=== PATIENT | female | born 1940 | race Caucasian/White ===

== ENCOUNTER → 2017-01-21 | Outpatient (CLI) | payer MEDICARE ==
[~2017-01-21] VITALS: Ht 165.1 cm; Wt 59.4 kg
== END ==
LOC: OPSV 09:21
DX: M84.48XA Pathological fracture, other site, initial encounter for fracture (principal); M81.0 Age-related osteoporosis without current pathological fracture
CPT/HCPCS: 96372

== ENCOUNTER 2020-11-01 14:05 | Emergency (ER) | payer MEDICARE ==
[~2020-11-01 14:05] MED LIST: AUGMENTIN 875-1 EACH PO; BETAPACE 80MG T80 MG PO; CALCIUM600 MG PO; ELIQUIS 5 MG TAB5 MG PO; HYDROCHLOROTHIA25 MG PO; IPRAT-ALBUT 0.5-3 ML NEB; NORCO 5-325 TA1 EACH PO; OCUTABS TABLET1 EACH PO; OSTEO BI-FLEX1 EACH PO; PREDNISONE20 MG PO; PROLIA INJ60 MG/1 ML SC; SYNTHROID25 MCG PO; TAMIFLU 75 MG C75 MG PO; THERA TEARS NU1 EACH PO; VITAMIN D31000 UNI1 PO; VOLTAREN PO; ZANTAC150 MG PO; ZOCOR20 MG PO
[2020-11-01 15:40] LABS: HEMOGLOBIN 13.3 gm/dl (12.3-15.3); RED BLOOD COUNT 4.37 M/UL (4.00-5.10); WHITE BLOOD COUNT 5.1 K/UL (4.5-11.0)
[2020-11-01 16:01] LABS: BUN/CREATININE RATIO 10 (0-10)
[2021-04-25] MEDS ORDERED: FAMOTIDINE20 MG PO (04:15)
[2021-04-25] MEDS ORDERED: EYE MULTIVITAM1 EAC1 PO (04:20)
== END 2020-11-01 19:13 | disposition home or self-care (01) ==
LOC: ER1 14:05
PROVIDERS: Physician Assistant
DX: U07.1 COVID-19 (principal); I10 Essential (primary) hypertension; E03.9 Hypothyroidism, unspecified; Z79.899 Other long term (current) drug therapy
CPT/HCPCS: 71045; 80053; 85025; 99285; M0239

== ENCOUNTER 2020-11-05 16:11 | Emergency (ER) | payer MEDICARE ==
[2021-04-25] MEDS ORDERED: FAMOTIDINE20 MG PO (04:15)
[2021-04-25] MEDS ORDERED: EYE MULTIVITAM1 EAC1 PO (04:20)
== END 2020-11-05 19:20 | disposition home or self-care (01) ==
LOC: ER1 16:11
DX: I10 Essential (primary) hypertension (principal); U07.1 COVID-19; Z79.01 Long term (current) use of anticoagulants
CPT/HCPCS: 99283

== ENCOUNTER → 2021-01-28 | Outpatient (CLI) | payer MEDICARE ==
[~2021-01-28] MED LIST changes: +ACETAMINOPHEN500 MG PO; +CLARITIN10 M2 PO; +CLINDAMYCIN HC300 MG PO; +DILTIAZEM 24HR120 M1 PO; +DILTIAZEM 24HR180 M1 PO; +ELIQUIS2.5 MG PO; +EYE MULTIVITAM1 EAC1 PO; +FAMOTIDINE20 MG PO; +FLONASE 0.05% N16 GM; +LEVOFLOXACIN500 MG PO; +LISINOPRIL-HCT1 EACH PO; +SYNTHROID50 MCG PO; +VITAMIN D-40010 MCG PO; +VITAMIN D250 MCG PO; +VOLTREN XR 100100 MG PO
== END ==
LOC: OPSV 10:00
DX: M81.0 Age-related osteoporosis without current pathological fracture (principal); M84.48XA Pathological fracture, other site, initial encounter for fracture
CPT/HCPCS: 96372

== ENCOUNTER 2021-03-06 12:52 | Inpatient (IN) | payer MEDICARE ==
[~2021-03-06] VITALS: Ht 165.1 cm; Wt 58.2 kg
[~2021-03-06 12:52] MED LIST changes: -ACETAMINOPHEN500 MG PO; -CLARITIN10 M2 PO; -CLINDAMYCIN HC300 MG PO; -DILTIAZEM 24HR120 M1 PO; -DILTIAZEM 24HR180 M1 PO; -ELIQUIS2.5 MG PO; -EYE MULTIVITAM1 EAC1 PO; -FAMOTIDINE20 MG PO; -FLONASE 0.05% N16 GM; -LEVOFLOXACIN500 MG PO; -LISINOPRIL-HCT1 EACH PO; -SYNTHROID50 MCG PO; -VITAMIN D-40010 MCG PO; -VITAMIN D250 MCG PO; -VOLTREN XR 100100 MG PO
[2021-03-06 13:42] LABS: HEMOGLOBIN 15.7 gm/dl (12.3-15.3); RED BLOOD COUNT 5.09 M/UL (4.00-5.10); WHITE BLOOD COUNT 7.6 K/UL (4.5-11.0)
[2021-03-06 14:47] LABS: BUN/CREATININE RATIO 26 (0-10)
[2021-03-07 04:13] LABS: HEMOGLOBIN 14.4 gm/dl (12.3-15.3); RED BLOOD COUNT 4.68 M/UL (4.00-5.10); WHITE BLOOD COUNT 6.3 K/UL (4.5-11.0)
[2021-03-07] MEDS ORDERED: CLARITIN10 M2 PO (04:15)
[2021-03-07] MEDS ORDERED: FLONASE 0.05% N16 GM (04:16)
[2021-03-07] MEDS ORDERED: SYNTHROID50 MCG PO (04:17)
[2021-03-07] MEDS ORDERED: VITAMIN D-40010 MCG PO (04:19)
[2021-03-07] MEDS ORDERED: LISINOPRIL-HCT1 EACH PO (04:19)
[2021-03-07] MEDS ORDERED: ELIQUIS2.5 MG PO (04:20)
[2021-03-07 04:37] LABS: BUN/CREATININE RATIO 19 (0-10)
[2021-03-07] MEDS ORDERED: BETAPACE 80MG T80 MG PO (10:53)
[2021-03-08] MEDS ORDERED: VOLTREN XR 100100 MG PO (06:32)
[2021-04-25] MEDS ORDERED: FAMOTIDINE20 MG PO (04:15)
[2021-04-25] MEDS ORDERED: EYE MULTIVITAM1 EAC1 PO (04:20)
== END 2021-03-07 12:02 | disposition home or self-care (01) | DRG 308 ==
LOC: ER1 12:52 → CDU 15:02 → PROG CARE 23:13
PROVIDERS: Emergency Medicine; Internal Medicine; ADMIT Family Medicine
PROC: 8E0ZXY6 Isolation (ICD-10-PCS; principal; 2021-03-06)
DX: I48.92 Unspecified atrial flutter (principal); U07.1 COVID-19; I10 Essential (primary) hypertension; I48.0 Paroxysmal atrial fibrillation; E03.9 Hypothyroidism, unspecified; M19.90 Unspecified osteoarthritis, unspecified site; E78.5 Hyperlipidemia, unspecified; I27.20 Pulmonary hypertension, unspecified; Z90.49 Acquired absence of other specified parts of digestive tract; Z88.5 Allergy status to narcotic agent; Z88.2 Allergy status to sulfonamides; Z79.01 Long term (current) use of anticoagulants; Z79.890 Hormone replacement therapy; Z79.899 Other long term (current) drug therapy; Z82.49 Family history of ischemic heart disease and other diseases of the circulatory system; Z82.3 Family history of stroke; Z82.62 Family history of osteoporosis; Z98.49 Cataract extraction status, unspecified eye; Z86.16 Personal history of COVID-19
CPT/HCPCS: 36415; 71045; 80053; 82150; 82550; 82553; 83605; 83690; 83874; 84484; 85025; 85379; 85610; 85730; 93005; 99285; U0002

== ENCOUNTER 2021-03-08 00:46 | Observation (INO) | payer MEDICARE ==
[~2021-03-08] VITALS: Ht 165.1 cm; Wt 48.5 kg
[~2021-03-08 00:46] MED LIST changes: +CLARITIN10 M2 PO; +ELIQUIS2.5 MG PO; +FLONASE 0.05% N16 GM; +LISINOPRIL-HCT1 EACH PO; +SYNTHROID50 MCG PO; +VITAMIN D-40010 MCG PO
[2021-03-08 01:18] LABS: HEMOGLOBIN 15.5 gm/dl (12.3-15.3); RED BLOOD COUNT 5.02 M/UL (4.00-5.10); WHITE BLOOD COUNT 5.5 K/UL (4.5-11.0)
[2021-03-08 01:42] LABS: BUN/CREATININE RATIO 19 (0-10)
[2021-03-08] MEDS ORDERED: VOLTREN XR 100100 MG PO (06:32)
--- NOTE | 2021-03-08 08:30 | NUR ---
AT APPROX 0730 PATIENT UP TO BEDSIDE COMMODE. HEART RATE INCREASED TO 179, B/P 121/101. ASSIST PATIENT BACK TO BED, STATES SHE IS HAVING CHEST DISCOMFORT AND FEELS VERY WEAK. CALLED MD FOR ORDERS. STARTED CARDIZEM DRIP AT 12ML/HR. 0808 HEART RATE AND B/P WITHIN NORMAL LIMITS. DECREASED CARDIZEM DRIP TO 6ML/HR. MD AWARE
[2021-03-08 11:04] LABS: BUN/CREATININE RATIO 13 (0-10)
[2021-03-09 03:27] LABS: HEMOGLOBIN 13.9 gm/dl (12.3-15.3); RED BLOOD COUNT 4.56 M/UL (4.00-5.10); WHITE BLOOD COUNT 5.3 K/UL (4.5-11.0)
[2021-03-09 03:39] LABS: BUN/CREATININE RATIO 13 (0-10)
[2021-03-10 03:09] LABS: BUN/CREATININE RATIO 13 (0-10)
[2021-03-10] MEDS ORDERED: ZOCOR20 MG PO (10:07)
[2021-03-10] MEDS ORDERED: DILTIAZEM 24HR180 M1 PO (10:07)
[2021-03-10] MEDS ORDERED: BETAPACE 80MG T80 MG PO (10:07)
[2021-04-25] MEDS ORDERED: FAMOTIDINE20 MG PO (04:15)
[2021-04-25] MEDS ORDERED: EYE MULTIVITAM1 EAC1 PO (04:20)
== END 2021-03-10 12:18 | disposition home or self-care (01) ==
LOC: ER1 00:46 → CDU 02:46 → PROG CARE 02:46
PROVIDERS: Internal Medicine; Student in an Organized Health Care Education/Training Program; ADMIT Family Medicine
DX: I48.92 Unspecified atrial flutter (principal); I48.0 Paroxysmal atrial fibrillation; U07.1 COVID-19; I10 Essential (primary) hypertension; E78.5 Hyperlipidemia, unspecified; E87.1 Hypo-osmolality and hyponatremia; E03.9 Hypothyroidism, unspecified; E11.9 Type 2 diabetes mellitus without complications; I27.20 Pulmonary hypertension, unspecified; Z88.2 Allergy status to sulfonamides; Z88.5 Allergy status to narcotic agent; Z79.01 Long term (current) use of anticoagulants; Z79.1 Long term (current) use of non-steroidal anti-inflammatories (NSAID); Z79.899 Other long term (current) drug therapy
CPT/HCPCS: 36415; 71045; 80048; 80053; 81001; 82550; 82553; 83605; 83690; 83735; 83874; 83880; 84100; 84439; 84443; 84484; 85025; 85652; 86140; 93005; 99285; G0378; J7030

== ENCOUNTER 2021-04-23 15:11 | Observation (INO) | payer MEDICARE ==
[~2021-04-23] VITALS: Ht 165.1 cm; Wt 58.6 kg
[~2021-04-23 15:11] MED LIST changes: +DILTIAZEM 24HR180 M1 PO; +VOLTREN XR 100100 MG PO
[2021-04-23 16:03] LABS: HEMOGLOBIN 15.2 gm/dl (12.3-15.3); RED BLOOD COUNT 4.94 M/UL (4.00-5.10); WHITE BLOOD COUNT 6.4 K/UL (4.5-11.0)
[2021-04-23 16:36] LABS: BUN/CREATININE RATIO 18 (0-10)
[2021-04-25] MEDS ORDERED: FAMOTIDINE20 MG PO (04:15)
[2021-04-25] MEDS ORDERED: EYE MULTIVITAM1 EAC1 PO (04:20)
[2021-04-25] MEDS ORDERED: ZOCOR20 MG PO (20:20)
[2021-04-25] MEDS ORDERED: VITAMIN D250 MCG PO (20:25)
== END 2021-04-24 12:33 | disposition home or self-care (01) ==
LOC: ER1 15:11 → PROG CARE 19:07 → CDU 19:07 → PROG CARE 19:15
PROVIDERS: Family Medicine; ADMIT Family Medicine
DX: I48.0 Paroxysmal atrial fibrillation (principal); I48.92 Unspecified atrial flutter; I49.5 Sick sinus syndrome; I10 Essential (primary) hypertension; I27.20 Pulmonary hypertension, unspecified; E78.5 Hyperlipidemia, unspecified; E03.9 Hypothyroidism, unspecified; H35.30 Unspecified macular degeneration; M19.90 Unspecified osteoarthritis, unspecified site; M81.0 Age-related osteoporosis without current pathological fracture; K21.9 Gastro-esophageal reflux disease without esophagitis; Z20.822 Contact with and (suspected) exposure to COVID-19; Z79.1 Long term (current) use of non-steroidal anti-inflammatories (NSAID); Z79.01 Long term (current) use of anticoagulants; Z79.899 Other long term (current) drug therapy; Z86.16 Personal history of COVID-19; Z88.2 Allergy status to sulfonamides; Z88.5 Allergy status to narcotic agent
CPT/HCPCS: 71045; 80053; 81001; 82550; 82553; 83874; 84439; 84443; 84484; 85025; 85610; 93005; 96374; 99285; G0378; U0002

== ENCOUNTER 2021-04-25 12:27 | Inpatient (IN) | payer MEDICARE ==
[~2021-04-25] VITALS: Ht 165.1 cm; Wt 57.3 kg
[~2021-04-25 12:27] MED LIST changes: +EYE MULTIVITAM1 EAC1 PO; +FAMOTIDINE20 MG PO
[2021-04-25 13:14] LABS: HEMOGLOBIN 14.7 gm/dl (12.3-15.3); RED BLOOD COUNT 4.81 M/UL (4.00-5.10); WHITE BLOOD COUNT 6.1 K/UL (4.5-11.0)
[2021-04-25 13:43] LABS: BUN/CREATININE RATIO 18 (0-10)
[2021-04-25] MEDS ORDERED: ZOCOR20 MG PO (20:20)
[2021-04-25] MEDS ORDERED: VITAMIN D250 MCG PO (20:25)
[2021-04-26 03:38] LABS: RED BLOOD COUNT 4.59 M/UL (4.00-5.10); WHITE BLOOD COUNT 5.6 K/UL (4.5-11.0)
[2021-04-28 02:57] LABS: HEMOGLOBIN 13.6 gm/dl (12.3-15.3); RED BLOOD COUNT 4.36 M/UL (4.00-5.10); WHITE BLOOD COUNT 4.4 K/UL (4.5-11.0)
[2021-04-29] MEDS ORDERED: LEVOFLOXACIN500 MG PO (16:47)
[2021-04-29] MEDS ORDERED: CLINDAMYCIN HC300 MG PO (16:47)
[2021-04-30 02:24] LABS: HEMOGLOBIN 13.4 gm/dl (12.3-15.3); RED BLOOD COUNT 4.56 M/UL (4.00-5.10)
[2021-04-30 02:42] LABS: WHITE BLOOD COUNT 6.4 K/UL (4.5-11.0)
[2021-04-30 02:44] LABS: BUN/CREATININE RATIO 17 (0-10)
[2021-04-30] MEDS ORDERED: ACETAMINOPHEN500 MG PO (09:34)
[2021-04-30] MEDS ORDERED: BETAPACE 80MG T80 MG PO (09:34)
[2021-04-30] MEDS ORDERED: DILTIAZEM 24HR120 M1 PO (09:34)
== END 2021-04-30 10:45 | disposition home or self-care (01) | DRG 244 ==
LOC: ER1 12:27 → PROG CARE 17:43 → CDU 17:43 → MED SURG 4 19:12 → PROG CARE 22:00
PROVIDERS: Emergency Medicine; Internal Medicine; ADMIT Family Medicine
PROC: 0JH606Z Insertion of Pacemaker, Dual Chamber into Chest Subcutaneous Tissue and Fascia, Open Approach (ICD-10-PCS; principal; 2021-04-29)
PROC: 02H63JZ Insertion of Pacemaker Lead into Right Atrium, Percutaneous Approach (ICD-10-PCS; 2021-04-29)
PROC: 02HK3JZ Insertion of Pacemaker Lead into Right Ventricle, Percutaneous Approach (ICD-10-PCS; 2021-04-29)
DX: I49.5 Sick sinus syndrome (principal); I48.91 Unspecified atrial fibrillation; I10 Essential (primary) hypertension; E78.5 Hyperlipidemia, unspecified; E03.9 Hypothyroidism, unspecified; I27.20 Pulmonary hypertension, unspecified; R55 Syncope and collapse; I48.0 Paroxysmal atrial fibrillation; Z79.899 Other long term (current) drug therapy; Z88.5 Allergy status to narcotic agent; Z88.2 Allergy status to sulfonamides; Z79.01 Long term (current) use of anticoagulants
CPT/HCPCS: ECHO; 33208; 36415; 71045; 80048; 80053; 81001; 82550; 82553; 83735; 83874; 84439; 84443; 84484; 85025; 85027; 85610; 93005; 93306; 96374; 99152; 99153; 99285; C1898; C2621; G0378; J0360; J1200; J1644; J2250; J3010; J3370; J7040; J7050; J7070; U0002

== ENCOUNTER → 2021-08-14 | Outpatient (CLI) | payer MEDICARE ==
[~2021-08-14] VITALS: Ht 162.6 cm; Wt 60.3 kg
[~2021-08-14] MED LIST changes: +ACETAMINOPHEN500 MG PO; +CLINDAMYCIN HC300 MG PO; +DILTIAZEM 24HR120 M1 PO; +LEVOFLOXACIN500 MG PO; +VITAMIN D250 MCG PO
== END ==
LOC: OPSV 13:55
DX: M84.48XA Pathological fracture, other site, initial encounter for fracture (principal); M81.0 Age-related osteoporosis without current pathological fracture
CPT/HCPCS: 96372

== ENCOUNTER → 2021-10-28 | Outpatient (CLI) | payer MEDICARE | LOC: LBRF 15:34 | DX: N39.0 Urinary tract infection, site not specified (principal) | CPT/HCPCS: 87086 ==

== ENCOUNTER → 2021-11-03 | Outpatient (CLI) | payer MEDICARE | LOC: KOH-I 11:30 | DX: R10.9 Unspecified abdominal pain (principal); K44.9 Diaphragmatic hernia without obstruction or gangrene; R93.3 Abnormal findings on diagnostic imaging of other parts of digestive tract | CPT/HCPCS: 74176 ==

== ENCOUNTER → 2022-03-16 | Outpatient (CLI) | payer MEDICARE | LOC: KOH-I 14:41 | DX: M79.672 Pain in left foot (principal); M84.48XA Pathological fracture, other site, initial encounter for fracture; R60.9 Edema, unspecified; M19.072 Primary osteoarthritis, left ankle and foot | CPT/HCPCS: 73630 ==

== ENCOUNTER → 2022-03-25 | Outpatient (CLI) | payer MEDICARE | LOC: OPSV 15:00 | DX: M84.48XA Pathological fracture, other site, initial encounter for fracture (principal); M81.0 Age-related osteoporosis without current pathological fracture | CPT/HCPCS: 96372 ==